=== PATIENT | female | born 1985 | race African-American/Black ===

== ENCOUNTER 2017-08-25 09:46 | Emergency (ER) | payer MEDICAID, OTHER ==
[~2017-08-25] VITALS: Ht 170.2 cm; Wt 127.0 kg
[~2017-08-25 09:46] MED LIST: ACETAMINOPHEN500 M5 PO; AFRIN NASAL SPR30 ML NASAL; ALBUTEROL SULF8.5 GM INH; BACTRIM DS TAB1 EAC1 ORAL; CEPHALEXIN500 MG ORAL; CIPROFLOXACIN500 M2 ORAL; CLINDAMYCIN HC300 MG ORAL; DIFLUCAN150 MG PO; DOXYCYCLINE MO100 MG ORAL; IBUPROFEN600 MG ORAL; METRONIDAZOLE500 MG ORAL; NKM; NORCO 5-325 TA1 EACH ORAL; PREDNISONE20 MG PO; PRENATAL CAPLE1 EACH PO; PROCTOSOL-HC1 APPLIC TOPIC; TYLENOL325 MG ORAL; VENTOLIN HFA18 GM INH
[2017-08-25 09:56] VITALS: BP 120/74
[2017-08-25] MEDS ORDERED: CLINDAMYCIN HC300 MG ORAL (10:16)
[2017-08-25 10:22] VITALS: BP 120/74
--- NOTE | 2017-08-26 06:56 | Emergency Room Report ---
History of Present Illness General Chief Complaint: Skin Rash/Abscess Source: Patient Present Illness HPI 32-year-old female presents ED for evaluation. States that since last night she 's noticed any redness and swelling to her right upper arm. Thinks it may be a spider bite. Denies any pain at this time. States it is itchy. Denies any fevers or chills. Denies any discharge. No other aggravating relieving factors. Denies any other associated symptoms Allergies: Coded Allergies: PENICILLINS (Verified Allergy, Unknown, 03/05/14) Patient History Past Medical History: asthma Past Surgical History: none Pertinent Family History: none Social History: Denies: smoking, alcohol use, drug use Now: No Immunizations: UTD Reviewed Nursing Documentation: PMH: Agreed, PSxH: Agreed Nursing Documentation-PMH Hx Cardiac Problems: No - anemia Hx Hypertension: No Hx Pacemaker: No Hx Asthma: Yes Hx COPD: No Hx Diabetes: No Hx Cancer: No Hx Gastrointestinal Problems: No Hx Dialysis: No Hx Neurological Problems: No Hx Cerebrovascular Accident: No Hx Seizures: No Review of Systems All Other Systems: negative except mentioned in HPI Physical Exam Vital Signs Date Time Temp Pulse Resp B/P (MAP) Pulse Ox O2 Delivery O2 Flow Rate FiO2 08/25/17 09:56 97.5 62 20 120/74 100 Room Air Sp02 EP Interpretation: reviewed, normal General Appearance: no apparent distress, alert, GCS 15, non-toxic Head: normocephalic Eyes: bilateral eye normal inspection, bilateral eye PERRL ENT: normal ENT inspection Neck: normal inspection Respiratory: normal inspection Cardiovascular #1: normal inspection Gastrointestinal: normal inspection Rectal: deferred Genitourinary: no CVA tenderness Musculoskeletal: normal inspection Neurologic: alert, oriented x3, responsive, motor strength/tone normal, sensory intact, speech normal Psychiatric: normal inspection Skin: other - 2x3cm area of erythema/induration to R proximal arm. no discharge. no fluctuance Lymphatic: normal inspection Medical Decision Making Diagnostic Impression: Primary Impression: Insect bite Qualified Codes: W57.XXXA - Bitten or stung by nonvenomous insect and other nonvenomous arthropods, initial encounter ER Course Hospital Course 32-year-old female presents to ED with redness, swelling to right arm Differential diagnoses include: Cellulitis, dermatitis, insect bite, abscess Clinical course Patient placed on stretcher. After initial history, physical exam reveals a young female in no acute distress. On exam there is a site for mild erythema and induration to the right proximal arm. There is no fluctuance. There is no tenderness. Full range of motion is noted in the right shoulder and there is no concern for any signs of infection to the joint. There is no tongue swelling , no stridor, no signs of impending airway. I told patient I cannot say with certainty that this is a spider bite. Clinical findings consistent with a insect bite with the possible bacterial superinfection. reassurance given Diagnosis - bug bite stable and discharged to home with prescription for Clindamycin. Instructed to followup with PMD. Instructed return to ED if symptoms recur or worsen Last Vital Signs Date Time Temp Pulse Resp B/P (MAP) Pulse Ox O2 Delivery O2 Flow Rate FiO2 08/25/17 10:22 97.5 61 20 120/74 100 Room Air Status: improved Disposition: HOME, SELF-CARE Condition: Stable Scripts Clindamycin Hcl (CLINDAMYCIN HCL) 300 Mg Capsule 300 MG ORAL THREE TIMES A DAY, #21 CAP Prov: ROSALIE DOTY M.D. 08/25/17 [facility],REFERRING (PCP) Patient Instructions: Insect Bite, [id number] ROSALIE DOTY M.D. Aug 26, 2017 06:56
== END 2017-08-25 10:22 | disposition home or self-care (01) ==
LOC: EMR 10:13
DX: S40.861A Insect bite (nonvenomous) of right upper arm, initial encounter (principal); W57.XXXA Bitten or stung by nonvenomous insect and other nonvenomous arthropods, initial encounter; Y92.9 Unspecified place or not applicable; M79.89 Other specified soft tissue disorders; J45.909 Unspecified asthma, uncomplicated
CPT/HCPCS: 99283

== ENCOUNTER 2018-02-24 13:06 | Emergency (ER) | payer MEDICAID ==
[~2018-02-24] VITALS: Ht 172.7 cm; Wt 135.6 kg
[2018-02-24] MEDS ORDERED: PHENTERMINE H37.5 MG PO (13:42)
[2018-02-24] MEDS ORDERED: FUROSEMIDE40 MG ORAL (13:42)
[2018-02-24] MEDS ORDERED: POTASSIUM99 M3 PO (13:42)
--- NOTE | 2018-02-24 13:49 | Emergency Room Report ---
History of Present Illness General Chief Complaint: Female Urogenital Problems Source: Patient, Medical Record Present Illness HPI 33 yo female patient presents to ER complaining of vaginal itching and pain since x5 days. Reports used Wood to remove hair and believes some got into her vaginal canal. Reports pain since that time. Complains of swelling and irritation of outer vagina, reports swelling and symptoms have decreased since that time. Reports washed area thoroughly and repeatedly since that time. Denies hematuria. Denies foul smell. Reports LMP last month, normal for her. , one surgical , no complications from . Reports no recent sexual activity, recent tested, clean. Denies fever, chest pain, SOB, abdominal pain. Allergies: Coded Allergies: PENICILLINS (Verified Allergy, Unknown, 03/05/14) Patient History Past Medical History: see triage record Last Menstrual Period: 02/09/18 Now: No : 2 Para: 1 Reviewed Nursing Documentation: PMH: Agreed; PSxH: Agreed Nursing Documentation-PMH Hx Cardiac Problems: No - anemia Hx Hypertension: No Hx Pacemaker: No Hx Asthma: Yes Hx COPD: No Hx Diabetes: No Hx Cancer: No Hx Gastrointestinal Problems: No Hx Dialysis: No Hx Neurological Problems: No Hx Cerebrovascular Accident: No Hx Seizures: No Review of Systems All Other Systems: negative except mentioned in HPI Physical Exam Vital Signs Date Time Temp Pulse Resp B/P (MAP) Pulse Ox O2 Delivery O2 Flow Rate FiO2 02/24/18 13:33 98.0 74 16 102/67 98 Room Air 98.1 Sp02 EP Interpretation: reviewed, normal General Appearance: well appearing, no apparent distress, alert, GCS 15, non- toxic Head: normocephalic, atraumatic ENT: hearing grossly normal, normal pharynx, no angioedema, normal voice, uvula midline, moist mucus membranes Neck: full range of motion Respiratory: lungs clear, normal breath sounds, no rhonchi, no respiratory distress, no accessory muscle use, no wheezing, speaking full sentences Gastrointestinal: non tender, soft, no mass, non-distended, no guarding, no rebound Genitourinary: no CVA tenderness Musculoskeletal: back normal, digits/nails normal, gait/station normal, normal range of motion, non-tender Neurologic: alert, oriented x3, responsive, motor strength/tone normal, sensory intact Psychiatric: mood/affect normal Skin: other - external vagina: mild erythema, no edema, no wound, no rash, no lesions, no vesicles, no TTP Lymphatic: no adenopathy Medical Decision Making PA Attestation Dr. Payne is my supervising Physician whom patient management has been discussed with. Diagnostic Impression: Primary Impression: Urinary tract infection ER Course Pt presents to ED c/o urinary symptoms. DDX considered but are not limited to cystitis, pyelonephritis, contact dermatitis. VITAL SIGNS are WNL, patient is afebrile. Ordered UA, urine . ER COURSE UA results show leukocyte esterase and WBCs, patient symptomatic, indicate UTI, will treat with abx. Urine negative Results discussed with patient Informed patient not to use Wood in areas not specified. Drink plenty of fluids. Return to ER for new or worsening of symptoms. Skin infection does not require topical treatment at this time, return to ER if symptoms return or worsen. Patient is resting comfortably in chair, nontoxic appearing, in no acute distress. DISCHARGE -Rx provided for Bactrim Patient is stable for discharge. Patient resting comfortably, in no acute distress, nontoxic appearing, talking without difficulty, smiling and laughing. Will provide with patient care instructions and any necessary prescriptions. Patient understands and agrees to treatment plan. Patient encouraged to drink plenty of fluids. Patient to take medication as instructed. Care plan and follow-up instructions provided. Patient questions asked and answered. Reports understanding and agreement to treatment plan. Patient instructed to follow-up with primary care provider in 3 - 5 days. ER precautions given. Patient instructed to return to ER immediately for any new or worsening of symptoms. Including but not limited to fever, abdominal pain , intractable vomiting. Labs Test 02/24/18 13:49 Urine Color Yellow Urine Appearance Clear Urine pH 6 (4.5-8.0) Urine Specific [place] 1.020 (1.005-1.035) Urine Protein 1+ (NEGATIVE) Urine Glucose (UA) Negative (NEGATIVE) Urine Ketones Negative (NEGATIVE) Urine Occult Blood Negative (NEGATIVE) Urine Nitrite Negative (NEGATIVE) Urine Bilirubin Negative (NEGATIVE) Urine Urobilinogen Normal MG/DL (0.0-1.0) Urine Leukocyte Esterase 2+ (NEGATIVE) Urine RBC 0-2 /HPF (0 - 2) Urine WBC 5-10 /HPF (0 - 2) Urine Squamous Epithelial Cells Moderate /LPF (NONE/OCC) Urine Bacteria Few /HPF (NONE) Urine HCG, Qualitative Negative (NEGATIVE) Last Vital Signs Date Time Temp Pulse Resp B/P (MAP) Pulse Ox O2 Delivery O2 Flow Rate FiO2 02/24/18 13:33 98.0 74 16 102/67 98 Room Air 98.1 Disposition: HOME, SELF-CARE Condition: Stable Scripts Trimethoprim/Sulfamethoxazole 160/800* (BACTRIM DS TABLET*) 1 Each Tablet 1 TAB ORAL TWICE A DAY for 7 Days, #14 TAB Prov: Palomo Briones 02/24/18 Patient Instructions: Urinary Tract Infection Additional Instructions: Followup with primary care provider in 3 -5 days. Take medications as directed. Patient questions asked and answered. Do not use Wood in vaginal area. ER precautions given, patient instructed to return to ER immediately for any new or worsening of symptoms. Palomo Briones Feb 24, 2018 13:49
[2018-02-24 13:51] VITALS: BP 102/67
[2018-02-24 14:00] LABS: APPEARANCE,URINE CLEAR; BILIRUBIN, URINE NEGATIVE (NEGATIVE); GLUCOSE, URINE (UA) NEGATIVE (NEGATIVE); KETONES,URINE NEGATIVE (NEGATIVE); LEUKOCYTE ESTERASE ,URINE 2+ (NEGATIVE); NITRITE,URINE NEGATIVE (NEGATIVE); PH,URINE 6 (4.5-8.0); PROTEIN,URINE 1+ (NEGATIVE); UROBILINOGEN,URINE NORMAL MG/DL (0.0-1.0)
[2018-02-24 14:11] LABS: COLOR,URINE YELLOW
[2018-02-24] MEDS ORDERED: BACTRIM DS TAB1 EAC1 ORAL (14:28)
[2018-02-24 14:51] VITALS: BP 110/80
== END 2018-02-24 14:50 | disposition home or self-care (01) ==
LOC: EMR 14:11
DX: N39.0 Urinary tract infection, site not specified (principal); J45.909 Unspecified asthma, uncomplicated; Z88.0 Allergy status to penicillin
CPT/HCPCS: 81003; 81025; 99283

== ENCOUNTER 2018-09-05 19:43 | Emergency (ER) | payer MEDICAID ==
[~2018-09-05] VITALS: Ht 172.7 cm; Wt 137.9 kg
[~2018-09-05 19:43] MED LIST changes: +FUROSEMIDE40 MG ORAL; +PHENTERMINE H37.5 MG PO; +POTASSIUM99 M3 PO
[2018-09-05 20:02] VITALS: BP 103/65
--- NOTE | 2018-09-05 20:10 | Emergency Room Report ---
History of Present Illness General Chief Complaint: Upper Respiratory Illness Source: Patient Present Illness HPI 33-year-old female presents to the emergency department complaining of persistent cough 1 week. Patient also reports wheezing and feeling " tight/ constricted in the chest/breathing." Patient reports she has a history of asthma and she has been out of her inhaler so she has been attempting to use her child's inhaler but she is not getting any relief except for very temporary if any. Patient denies fevers or chills she denies runny nose, sore throat, headache, neck pain or stiffness. Patient states she also has had a lot of phlegm with her cough mainly at nighttime. Patient denies recent travel or ill contacts. Patient denies chest pain or palpitations. Allergies: Coded Allergies: PENICILLINS (Verified Allergy, Unknown, 03/05/14) Patient History Past Medical History: see triage record Past Surgical History: none Pertinent Family History: none Last Menstrual Period: 09/05/18 Now: No Reviewed Nursing Documentation: PMH: Agreed; PSxH: Agreed Nursing Documentation-PMH Past Medical History: No History, Except For Hx Cardiac Problems: No - anemia Hx Hypertension: No Hx Pacemaker: No Hx Asthma: Yes Hx COPD: No Hx Diabetes: No Hx Cancer: No Hx Gastrointestinal Problems: No Hx Dialysis: No Hx Neurological Problems: No Hx Cerebrovascular Accident: No Hx Seizures: No Review of Systems All Other Systems: negative except mentioned in HPI Physical Exam Vital Signs Date Time Temp Pulse Resp B/P (MAP) Pulse Ox O2 Delivery O2 Flow Rate FiO2 09/05/18 19:46 98.7 92 18 103/65 97 Room Air 98.8 Sp02 EP Interpretation: reviewed, normal General Appearance: no apparent distress, alert, GCS 15, non-toxic Head: normocephalic, atraumatic Eyes: bilateral eye normal inspection, bilateral eye PERRL ENT: hearing grossly normal, normal voice Neck: full range of motion Respiratory: chest non-tender, lungs clear, speaking full sentences, wheezing - bilaterally Cardiovascular #1: regular rate, rhythm, no edema Musculoskeletal: back normal, gait/station normal, normal range of motion, non- tender Neurologic: normal inspection, alert, oriented x3, responsive, motor strength/ tone normal, sensory intact, normal gait, speech normal, grossly normal Psychiatric: judgement/insight normal Skin: normal color, no rash, warm/dry, well hydrated Lymphatic: no adenopathy Medical Decision Making PA Attestation Dr. Sinha is my supervising Physician whom patient management has been discussed with. Diagnostic Impression: Primary Impression: Asthma exacerbation Qualified Codes: J45.901 - Unspecified asthma with (acute) exacerbation ER Course Pt. presents to the ED c/o cough and wheezing x 2 days, Pt. has a hx of asthma, and inhaler treatments at home are not helping as she is out of her inhaler and has been using her rachel. Ddx considered but are not limited to asthma exacerbation, CHF, URI, pneumonia, PE, strep pharyngitis, meningitis. Vital signs: Pt. is afebrile, VS are WNL H&PE are most consistent with asthma exacerbation ORDERS: none required at this time, the diagnosis is clinical ED INTERVENTIONS: -Duo Nebs -Prednisone PO - re-examination post nebulized treatment lungs are CTA bilaterally. DISCHARGE: At this time pt. is stable for d/c to home. Will provide printed patient care instructions, and any necessary prescriptions. Care plan and follow up instructions have been discussed with the patient prior to discharge. Last Vital Signs Date Time Temp Pulse Resp B/P (MAP) Pulse Ox O2 Delivery O2 Flow Rate FiO2 09/05/18 20:02 98.8 92 18 103/65 97 Room Air 98.8 Disposition: HOME, SELF-CARE Condition: Stable Patient Instructions: Acute Bronchitis, [id number] Additional Instructions: Take medications as directed. Follow up with a Primary Care Provider in 3-5 days, even if your symptoms have resolved. --Please review list of primary care clinics, if you do not already have a primary care provider Return sooner to ED if new symptoms occur, or current symptoms become worse. Do not drink alcohol, drive, or operate heavy machinery while taking Cough Syrup as this may cause drowsiness. - Please note that this Emergency Department Report was dictated using [employer] plumber technology software, occasionally this can lead to erroneous entry secondary to interpretation by the dictation equipment. Anabela Church Sep 05, 2018 20:10
[2018-09-05] MEDS ORDERED: GUAIFENESIN1200 MG PO (20:12)
[2018-09-05] MEDS ORDERED: PROMETHAZINE-C118 M1 ORAL (20:12)
[2018-09-05] MEDS ORDERED: ALBUTEROL SULF8.5 GM INH (20:12)
[2018-09-05] MEDS ORDERED: PREDNISONE20 MG ORAL (20:12)
[2018-09-05] MEDS ORDERED: Albuterol/Ipratropium 3ml neb HHN ONE (20:15)
[2018-09-05 20:43] VITALS: BP 103/65
== END 2018-09-05 20:44 | disposition home or self-care (01) ==
LOC: EMR 20:05
DX: J45.901 Unspecified asthma with (acute) exacerbation (principal)
CPT/HCPCS: 94640; 94664; 99284; J7512; J7620

== ENCOUNTER 2018-12-27 13:15 | Emergency (ER) | payer MEDICAID ==
[~2018-12-27] VITALS: Ht 172.7 cm; Wt 137.9 kg
[~2018-12-27 13:15] MED LIST changes: +GUAIFENESIN1200 MG PO; +PREDNISONE20 MG ORAL; +PROMETHAZINE-C118 M1 ORAL
[2018-12-27 13:25] VITALS: BP 102/78
--- NOTE | 2018-12-27 13:25 | NUR ---
ED Nurse Note: pt walked in c/o low back pain, pt states she fell walking down stairs today, pt denies head injury or quiñonez, pt AA&ox4, gcs=15, skin warm and dry, resp even and unlabored -n/v/d, ambulates w/ steady gait, noted tenderness on low back but no obvious deformity, contusion, or open wound, skin intact. will cont monitor.
--- NOTE | 2018-12-27 13:59 | Emergency Room Report ---
History of Present Illness General Chief Complaint: Pain Source: Patient Present Illness HPI 33-year-old female patient presents the ER complaining of low back pain status post fall. Reports he was walking upstairs when she slipped and fell. Denies dizziness or syncope. Denies hitting her head or loss of consciousness. Reports that she hit her lower back on the stairs and scooted down a few stairs. Reports this happened a few hours ago. States not taking medication for relief of symptoms. Denies bowel or bladder incontinence. Denies pain rating down legs. Reports able to ambulate without difficulty. Denies . Allergies: Coded Allergies: PENICILLINS (Verified Allergy, Unknown, 12/27/18) Patient History Past Medical History: see triage record Last Menstrual Period: NOV 2018 Reviewed Nursing Documentation: PMH: Agreed; PSxH: Agreed Nursing Documentation-PMH Past Medical History: No History, Except For Hx Cardiac Problems: No - anemia Hx Hypertension: No Hx Pacemaker: No Hx Asthma: Yes Hx COPD: No Hx Diabetes: No Hx Cancer: No Hx Gastrointestinal Problems: No Hx Dialysis: No Hx Neurological Problems: No Hx Cerebrovascular Accident: No Hx Seizures: No Review of Systems All Other Systems: negative except mentioned in HPI Physical Exam Vital Signs Date Time Temp Pulse Resp B/P (MAP) Pulse Ox O2 Delivery O2 Flow Rate FiO2 12/27/18 13:21 98.2 67 16 102/78 98 Room Air Sp02 EP Interpretation: reviewed, normal General Appearance: well appearing, no apparent distress, alert, GCS 15, non- toxic Head: normocephalic, atraumatic Eyes: bilateral eye normal inspection, bilateral eye PERRL ENT: hearing grossly normal, normal pharynx, no angioedema, normal voice, uvula midline, moist mucus membranes Neck: full range of motion Respiratory: lungs clear, normal breath sounds, no rhonchi, no respiratory distress, no accessory muscle use, no wheezing, speaking full sentences Cardiovascular #1: regular rate, rhythm, no edema Musculoskeletal: back normal, digits/nails normal, gait/station normal, normal range of motion, other - no bony depression, no deformity, no coccyx TTP, tender - lumbar spine, lumbosacral region Neurologic: alert, oriented x3, responsive, motor strength/tone normal, SLR negative, sensory intact Psychiatric: mood/affect normal Skin: no rash Medical Decision Making PA Attestation Dr. Sinha is my supervising Physician whom patient management has been discussed with. Diagnostic Impression: Primary Impression: Fall Additional Impression: Back contusion ER Course Pt. presents to the ED c/o low back pain s/p fall, denies hitting head or loss of consciousness. Ddx considered but are not limited to fracture, sprain, strain, contusion, dislocation. No erythema, no warmth to touch, no fever, nontoxic appearing, low suspicion for septic joint. Soft compartments, no pulselessness, no pallor, no paresthesias, low suspicion for compartment syndrome at this time. Vital signs: are WNL, pt. is afebrile Ordered X-ray and pain medication. ER COURSE Provided with pain medication and lidocaine patch.. An X-ray of the lumbar spine negative for acute disease per the preliminary reading. Offered patient xray of sacral coccyx, patient declined, stated would return to ER later if she "changed" her mind. Patient instructed on RICE method: rest, ice, compression, elevation. Patient instructed on rest, ice and heat Contact information for orthopedic urgent care provided, follow-up with urgent care if unable to followup with primary care provider and get referral to document specialist. Followup with primary care provider. Discuss referral to ortho/pain management/ PT as needed. Discuss further imaging with MRI/CT as needed. ER precautions given. DISCHARGE: -Rx provided for Ibuprofen for pain symptoms. -Rx provided for Lidocaine patch. At this time pt. is stable for d/c to home. Patient is resting comfortably, in no acute distress, nontoxic appearing, talking without difficulty. Will provide printed patient care instructions, and any necessary prescriptions. Patient instructed to follow with primary care provider in 3 - 5 days and to request further follow-up as needed. Care plan and follow up instructions have been discussed with the patient prior to discharge. Take medications as directed. Patient questions asked and answered. Patient reports understanding and agreement to treatment plan. ER precautions given, patient instructed to return to ER immediately for any new or worsening of symptoms. - Please note that this Emergency Department Report was dictated using [employer] Networksassistant professor of geography technology software, occasionally this can lead to erroneous entry secondary to interpretation by the dictation equipment. Other X-Ray Diagnostic Results Other X-Ray Diagnostic Results : X-Ray ordered: lumbar spine # of Views/Limited Vs Complete: 4 View Indication: Pain EP Interpretation: Yes PA Xray: Interpretation reviewed, by supervising MD, and agrees with findings. Interpretation: no dislocation, no soft tissue swelling, no fractures Impression: No acute disease MEKHI Scribelyssa Text Bj Briones PA-C Last Vital Signs Date Time Temp Pulse Resp B/P (MAP) Pulse Ox O2 Delivery O2 Flow Rate FiO2 12/27/18 13:21 98.2 67 16 102/78 98 Room Air Status: improved Disposition: HOME, SELF-CARE Condition: Stable Scripts Lidocaine (Lidocaine) 1 Each Adh..patch 5 % TP DAILY for 7 Days, #7 PATCH Prov: Palomo Briones 12/27/18 Ibuprofen* (MOTRIN*) 600 Mg Tablet 600 MG ORAL Q8H PRN for For Pain, #30 TAB 0 Refills Prov: Palomo Briones 12/27/18 Patient Instructions: Back Pain, Adult, [id number], Fall Prevention in the Home, [id number] Additional Instructions: Patient instructed to follow up with primary care provider 3-5 and discuss further referral and imaging at that time. Patient instructed on rest, ice and heat. Do not take muscle relaxant prior to drinking, driving, or operating heavy machinery. Take medications as directed. Patient questions asked and answered. ER precautions given, patient instructed to return to ER immediately for any new or worsening of symptoms. [facility] [address] [facility] [facility], [address] [email or web address] Palomo Briones Dec 27, 2018 13:59
[2018-12-27] MEDS ORDERED: Acetaminophen 500mg (ES) tab ORAL ONE (14:00)
[2018-12-27] MEDS ORDERED: IBUPROFEN600 MG ORAL (15:07)
[2018-12-27] MEDS ORDERED: LIDOCAINE700 M1 TP (15:07)
[2018-12-27 15:17] VITALS: BP 105/75
--- NOTE | 2018-12-27 15:17 | NUR ---
ED Nurse Note: A/OX4. PT IS CLEARED BY MEKHI WIGGINS. DC INSTRUCTION AND PRESCRITPIONS GIVEN, PT VERBALIZED UNDERSTANDING. IV AND ID WRIST BAND REMOVED. ALL BELONGINGS GIVEN. PT AMBULATED OUT OF ER WITH STEADY GAIT. DENIES PAIN AT THIS TIME.
--- NOTE | 2018-12-27 16:26 | Diagnostic Imaging Report ---
Indication: Back pain Comparison: None Findings: 3 views of the lumbar spine were obtained. No acute fracture or malalignment is identified. Vertebral body heights and disk spaces are well maintained. Posterior elements are unremarkable. Impression: No acute findings.
== END 2018-12-27 15:17 | disposition home or self-care (01) ==
LOC: EMR 14:16
DX: S30.0XXA Contusion of lower back and pelvis, initial encounter (principal); W10.9XXA Fall (on) (from) unspecified stairs and steps, initial encounter; Y92.009 Unspecified place in unspecified non-institutional (private) residence as the place of occurrence of the external cause; J45.909 Unspecified asthma, uncomplicated; Z88.0 Allergy status to penicillin
CPT/HCPCS: 72020; 99283